=== PATIENT | female | born 1965 | race Caucasian/White ===

== ENCOUNTER → 2017-05-07 | Outpatient (CLI) | payer BC ==
--- NOTE | 2017-05-07 10:37 | REPMRS ---
Patient History The patient states she had a clinical breast exam in 05/09 Patient is postmenopausal. Family history of breast cancer in maternal grandmother at age 50 or over. Digital Woman Screen Mammo: May 07, 2017 - Exam #: [id number] Bilateral CC and MLO view(s) were taken. Technologist: Mariel Johns, Technologist Prior study comparison: May 07, 2016, digital woman screen mammo performed at [facility] to [facility]. February 19, 2015, digital woman screen mammo performed at [facility]. November 28, 2010, digital mammo screening bilat performed at [facility] to [facility]. FINDINGS: There are scattered fibroglandular densities. There has been no change in the appearance of the mammogram from the prior studies. There is a mild amount of scattered fibroglandular density which is fairly symmetric. There is no interval development of dominant mass, architectural distortion, or clustered microcalcification suggestive of malignancy. ASSESSMENT: BI-RADS/ACR category 1 mammogram. Negative. Recommendation Routine screening mammogram in 1 year (for women over age 40). This mammogram was interpreted with the aid of an FDA-approved computer-aided dectection system. Electronically Signed By: Gamal Chase MD 05/07/17 [id number]
== END ==
LOC: M WHC 09:29
PROVIDERS: ATTEND Nurse Practitioner Family
DX: Z12.31 Encounter for screening mammogram for malignant neoplasm of breast (principal); Z78.0 Asymptomatic menopausal state

== ENCOUNTER → 2017-05-07 | Outpatient (CLI) | payer BC | LOC: M LAB 10:29 | PROVIDERS: ATTEND Nurse Practitioner Family | DX: R63.5 Abnormal weight gain (principal) ==

== ENCOUNTER → 2018-05-09 | Outpatient (REF) | payer BC ==
[2018-05-11 14:16] LABS: HPV HYBRID CAPTURE II Negative (Negative)
== END ==
LOC: M SFHCWAGY 09:22
DX: Z12.4 Encounter for screening for malignant neoplasm of cervix (principal)
CPT/HCPCS: G0123

== ENCOUNTER → 2018-05-09 | Outpatient (CLI) | payer BC | LOC: M WHC 09:00 | DX: Z12.31 Encounter for screening mammogram for malignant neoplasm of breast (principal) | CPT/HCPCS: 77067 ==

== ENCOUNTER 2018-06-23 08:02 | Day surgery (SDC) | payer BC ==
[~2018-06-23 08:02] MED LIST: LIDOCAINE 2% MDV 20 ML VIAL As Ordered; PROPOFOL 200 MG/20 ML VIAL As Ordered
[2018-06-23] MEDS: NS 1,000 ML IV (08:15)
== END 2018-06-23 10:20 | disposition home or self-care (01) ==
LOC: M OPP 08:02
DX: Z12.11 Encounter for screening for malignant neoplasm of colon (principal); R51 Headache
CPT/HCPCS: 45378

== ENCOUNTER → 2019-05-09 | Outpatient (CLI) | payer BC ==
[~2019-05-09] MED LIST changes: +ACET-683 PO; +IBUP-1114 PO; -LIDOCAINE 2% MDV 20 ML VIAL As Ordered; -PROPOFOL 200 MG/20 ML VIAL As Ordered; +TURM500T PO; +VITA100066 PO
--- NOTE | 2019-05-09 11:33 | REPMRS ---
Patient History The patient states she had a clinical breast exam in 04/2019. Family history of breast cancer at age 50 or over in maternal grandmother. No Hormone Replacement Therapy 3D TOMOSYNTHESIS WAS PERFORMED. The [facility] [address] lifetime risk for breast cancer is 16.7%. Digital Woman Screen Mammo: May 09, 2019 - Exam #: [id number] Bilateral CC and MLO view(s) were taken. Technologist: Nusrat Otoole, Technologist Prior study comparison: May 09, 2018, bilateral digital woman screen mammo performed at [facility]. May 07, 2017, digital woman screen mammo performed at [facility]. FINDINGS: There are scattered fibroglandular densities. There has been no change in the appearance of the mammogram from the prior studies. There is a mild amount of residual fibroglandular tissue which is fairly symmetric. There is no interval development of dominant mass, architectural distortion, or clustered microcalcification suggestive of malignancy. Assessment: BI-RADS/ACR category 1 mammogram. Negative Mammogram. Recommendation Routine screening mammogram in 1 year (for women over age 40). This mammogram was interpreted with the aid of an FDA-approved computer-aided dectection system. Electronically Signed By: Alonzo Smith MD 05/09/19 [id number]
== END ==
LOC: M WHC 08:43
PROVIDERS: ATTEND Nurse Practitioner Family
DX: Z12.31 Encounter for screening mammogram for malignant neoplasm of breast (principal)

== ENCOUNTER → 2019-11-02 | Outpatient (CLI) | payer BC ==
[~2019-11-02] MED LIST changes: +PROHANCE 279.3MG/ML 15ML VIAL (A9576) As Ordered ONE; +PROHANCE 279.3MG/ML 5ML VIAL (A9576) As Ordered ONE
--- NOTE | 2019-11-02 15:27 | REP ---
BILATERAL BREAST MRI STUDY WITHOUT AND WITH IV GADOLINIUM: HISTORY: High risk breast cancer screening. Comparison mammography May 09, 2019. TECHNIQUE: Three Janelle MRI imaging was performed with a dedicated breast coil. Axial, coronal, and sagittal T1 and T2-weighted scans were obtained with and without fat saturation in the usual fashion. The study includes dynamically acquired post gadolinium enhanced imaging subtraction imaging. Maximal intensity projection and multiplanar re-formation imaging is included as well. The study was interpreted with the aid of [employer], an FDA approved computer-aided detection (CAD) software program, on a dedicated breast MRI work station. The gadolinium enhancement dose is 15.6 mL of intravenous ProHance. FINDINGS: There is a moderate pattern of fibroglandular tissue present bilaterally. Minimal background parenchymal enhancement is seen. There is no evidence of axillary lymphadenopathy, internal mammary adenopathy, or breast cystic change. High-resolution pre and postcontrast images show no suspicious morphologic abnormality in either breast. There is no suspicious area of enhancement and washout in either breast on dynamically acquired post contrast images to suggest malignancy. Subtraction images are unremarkable. IMPRESSION: BIRADS category 1 negative findings. Electronically Signed by Nigel Chase MD 11/02/2019 05:26 P
== END ==
LOC: M RAD 12:12
PROVIDERS: ATTEND Nurse Practitioner Family
DX: Z91.89 Other specified personal risk factors, not elsewhere classified (principal)
CPT/HCPCS: A9576; C8908

== ENCOUNTER → 2020-06-12 | Outpatient (CLI) | payer BC ==
[~2020-06-12] MED LIST changes: -PROHANCE 279.3MG/ML 15ML VIAL (A9576) As Ordered ONE; -PROHANCE 279.3MG/ML 5ML VIAL (A9576) As Ordered ONE
--- NOTE | 2020-06-12 11:27 | REPMRS ---
Patient History The patient states she had a clinical breast exam in May 2020. Family history of breast cancer at age 50 or over in maternal grandmother. No Hormone Replacement Therapy 3D TOMOSYNTHESIS WAS PERFORMED. The [facility] lifetime risk for breast cancer is 16.4%. Volpara breast density b. Digital Woman Screen Mammo: June 12, 2020 - Exam #: [id number] Bilateral CC and MLO view(s) were taken. Technologist: RT Shaista Prior study comparison: May 09, 2019, bilateral digital woman screen mammo performed at [facility]. May 09, 2018, bilateral digital woman screen mammo performed at [facility]. FINDINGS: There are scattered fibroglandular densities. There has been no change in the appearance of the mammogram from the prior studies. There is a mild amount of residual fibroglandular tissue which is fairly symmetric. There is no interval development of dominant mass, architectural distortion, or clustered microcalcification suggestive of malignancy. Assessment: BI-RADS/ACR category 1 mammogram. Negative Mammogram. Recommendation Routine screening mammogram in 1 year (for women over age 40). This mammogram was interpreted with the aid of an FDA-approved computer-aided dectection system. Electronically Signed By: Alonzo Smith MD 06/12/20 [id number]
== END ==
LOC: M WHC 10:03
PROVIDERS: ATTEND Nurse Practitioner Family
DX: Z12.31 Encounter for screening mammogram for malignant neoplasm of breast (principal)

== ENCOUNTER → 2021-06-13 | Outpatient (REF) | payer BC | LOC: M SFHCWAGY 17:13 | PROVIDERS: ATTEND Advanced Practice Midwife | DX: Z12.4 Encounter for screening for malignant neoplasm of cervix (principal) | CPT/HCPCS: 87624; G0123 ==

== ENCOUNTER → 2021-06-13 | Outpatient (CLI) | payer BC ==
--- NOTE | 2021-06-13 15:38 | REPMRS ---
Patient History The patient states she had a clinical breast exam in May 2021. Patient is postmenopausal. Family history of breast cancer at age 50 or over in maternal grandmother. No Hormone Replacement Therapy Moderna vaccine 08/12/20 left arm. 09/19/20 left arm. 35 lb unintentional weight gain. Patient states no breast complaints today. Patient has signed MRS History Sheet. Digital Woman Screen Mammo: June 13, 2021 - Exam #: [id number] Bilateral CC and MLO view(s) were taken. Technologist: RT Shaista Prior study comparison: June 12, 2020, bilateral digital woman screen mammo performed at [facility]. May 09, 2019, bilateral digital woman screen mammo performed at [facility]. FINDINGS: There are scattered fibroglandular densities. Screening. Digital screening (2D) mammography was performed bilaterally in the CC and MLO projections. Additionally, breast tomosynthesis (3D mammography) was performed bilaterally in the CC and MLO projections. Todays exam was compared to the prior exam/exams. By history, the patient has no complaints of a palpable breast abnormality or other significant breast complaints. The breasts are unchanged in size and shape. There are no elfego-soft tissue densities or spiculated masses. There is no internal architectural distortion. There are no suspicious elfego-calcific clusters. Skin thickening or nipple retraction is not present. IMPRESSION: BI-RADS Category 2- Benign Findings. There is no evidence of malignant alteration of the breasts. Followup examination recommended in one year. The Volpara volumetric breast density category is B, there are scattered areas of fibroglandular densities. This mammogram was read with the assistance of [facility],an FDA approved computer aided detection system for mammography. The lifetime Tyrer-Cuzick score is 16.1 % Negative x-ray reports should not delay surgical consultation if a dominant or clinically suspicious mass is present. Not all breast cancers can be identified by mammography. Therefore, we recommend that you continue to perform regular breast self-examination and physical examination and then promptly contact your physician of any concerns or changes. Adenosis and dense breasts may obscure an underlying neoplasm. Assessment: BI-RADS/ACR category 2 mammogram. Benign Findings. Recommendation Routine screening mammogram of both breasts in 1 year. Electronically Signed By: Hi Keller DO 06/13/21 [id number]
== END ==
LOC: M WHC 13:55
PROVIDERS: ATTEND Advanced Practice Midwife
DX: Z12.31 Encounter for screening mammogram for malignant neoplasm of breast (principal); Z78.0 Asymptomatic menopausal state; Z80.3 Family history of malignant neoplasm of breast

== ENCOUNTER → 2023-03-30 | Outpatient (CLI) | payer BC | LOC: M WHC 15:41 | PROVIDERS: ATTEND Nurse Practitioner Family | DX: Z12.31 Encounter for screening mammogram for malignant neoplasm of breast (principal) ==

== ENCOUNTER → 2024-06-19 | Outpatient (CLI) | payer BC | LOC: M WHC 10:02 | PROVIDERS: ATTEND Nurse Practitioner Family | DX: Z12.31 Encounter for screening mammogram for malignant neoplasm of breast (principal) ==

== ENCOUNTER → 2024-06-19 | Outpatient (REF) | payer BC ==
[2024-06-21 16:37] LABS: HPV APTIMA Not Detected (Not Detected)
== END ==
LOC: M SFHCWAGY 13:35
PROVIDERS: ATTEND Nurse Practitioner Family
DX: Z12.4 Encounter for screening for malignant neoplasm of cervix (principal); Z11.51 Encounter for screening for human papillomavirus (HPV); Z77.9 Other contact with and (suspected) exposures hazardous to health; Z01.419 Encounter for gynecological examination (general) (routine) without abnormal findings

== ENCOUNTER → 2024-07-05 | Outpatient (REF) | payer BC | LOC: M SFHCWAGY 07:43 | PROVIDERS: ATTEND Nurse Practitioner Family | DX: N84.1 Polyp of cervix uteri (principal) ==

== ENCOUNTER → 2025-06-21 | Outpatient (CLI) | payer BC | LOC: M WHC 09:27 | PROVIDERS: ATTEND Nurse Practitioner Family | DX: Z12.31 Encounter for screening mammogram for malignant neoplasm of breast (principal) ==